=== PATIENT | female | born 1970 | race Caucasian/White ===

== ENCOUNTER 2019-02-11 15:08 | Outpatient (CLI) | payer OTHER ==
[2019-03-11 14:25] LABS: BASOPHILS % 0.3 % (0.0-1.5); MAGNESIUM 1.9 mIU/l (1.6-2.3); NEUTROPHILS # 4.2 # k/uL (1.4-7.7); eGFR (Non-African) > 60
== END 2019-02-11 15:13 | disposition home or self-care (01) ==
LOC: LAB 15:08
PROVIDERS: ATTEND Nurse Practitioner Family
DX: G47.00 Insomnia, unspecified (principal); R53.83 Other fatigue; G25.81 Restless legs syndrome
CPT/HCPCS: 36415; 80053; 83735; 84443; 85025

== ENCOUNTER 2019-04-08 10:11 | Outpatient (CLI) | payer OTHER ==
[2019-04-08] MEDS ORDERED: ONDANSETRON HCL/PF 4 MG/ 2ML VIAL IVP PRN (10:45)
[2019-04-08] MEDS: MULTIVIT INFUSN ADULT K IV ONE ×2 (10:56)
[2019-04-08] MEDS: SODIUM CHLORIDE IV ONE ×2 (10:56)
[2019-04-08 10:59] LABS: ANISOCYTOSIS 1+ (NEGATIVE); BASOPHILS % 0.5 % (0.0-1.5); NEUTROPHILS # 2.6 # k/uL (1.4-7.7); SEGMENTED NEUTROPHILS % 63 % (39-79); eGFR (Non-African) > 60
[2019-04-08] MEDS: 0.9 % SODIUM CHLORIDE 1,000 ML IV PRN (12:56)
== END 2019-04-08 14:20 | disposition home or self-care (01) ==
LOC: INF 10:11
PROVIDERS: ATTEND Nurse Practitioner Family
DX: R11.2 Nausea with vomiting, unspecified (principal); R19.7 Diarrhea, unspecified
CPT/HCPCS: 36415; 80053; 85025; J7030; S1016

== ENCOUNTER 2019-04-10 10:28 | Outpatient (CLI) | payer OTHER ==
[2019-04-10 10:40] LABS: BASOPHILS % 1.1 % (0.0-1.5); NEUTROPHILS # 1.5 # k/uL (1.4-7.7)
[2019-04-10 10:58] LABS: eGFR (Non-African) > 60
== END 2019-04-10 15:30 | disposition home or self-care (01) ==
LOC: INF 10:28
PROVIDERS: ATTEND Nurse Practitioner Family
DX: R11.10 Vomiting, unspecified (principal); R19.7 Diarrhea, unspecified
CPT/HCPCS: 80053; 85025; 87045; 87046; 87177; 87329; 87427; 87493

== ENCOUNTER 2019-04-11 20:50 | Emergency (ER) | payer OTHER ==
[2019-04-11] MEDS ORDERED: DIPHENOXYLATE /ATROPINE 2.5MG-0.025MG TABLET PO ONE (21:15)
[2019-04-11] MEDS ORDERED: ONDANSETRON HCL/PF 4 MG/ 2ML VIAL IVP ONE (21:15)
[2019-04-11] MEDS ORDERED: 0.9 % SODIUM CHLORIDE 1,000 ML IV ONE ×2 (21:16→22:37)
[2019-04-11] MEDS ORDERED: KETOROLAC TROMETHAMINE 30 MG/1ML VIAL IV ONE (21:22)
[2019-04-11 21:50] LABS: BASOPHILS % 0.8 % (0.0-1.5); NEUTROPHILS # 1.8 # k/uL (1.4-7.7)
[2019-04-11 22:03] LABS: eGFR (Non-African) > 60
[2019-04-11] MEDS ORDERED: POTASSIUM CHLORIDE 20 MEQ TABLET.ER PO ONE (22:18)
--- NOTE | 2019-04-11 22:49 | ED Physician Documentation ---
Nausea/Vomiting/Diarrhea - HISTORIAN Historian: patient - HPI Stated Complaint: N/V/D Chief Complaint: Nausea,Vomiting,Diarrhea Additional Information: Patient presents to ED with a 3 day history nausea/vomiting/diarrhea after tra veling to [place]. Patient has been seen in clinic and treated with Cipro/flagyl/promethazine. She reports she is having 15 stools per day, fever (101.8), and nausea. She is unable to keep her meds down. Stool cultures are pending. Onset: days ago (3) Duration: constant Timing: gradual onset Context: out of country travel Severity: severe - Associated Symptoms Vomiting: frequent Diarrhea: watery Abdominal Pain: cramping, periumbilical - ROS CONST: fever CVS/RESP: denies: chest pain, shortness of breath, cough GI/: none EYES/ENT: none NEURO/PSYCH: denies: headache - PAST HX Past History: none Surgeries/Procedures: none Allergies/Adverse Reactions: Allergies Allergy/AdvReac Type Severity Reaction Status Date / Time Sulfa (Sulfonamide Allergy Verified 04/11/19 21:11 Antibiotics) Home Medications: Ambulatory Orders Medication Instructions Recorded Ciprofloxacin HCl [Cipro] 500 mg PO Q12H #14 tablet 04/11/19 Diphenoxylate HCl/Atropine 1 each PO Q6 PRN #20 tablet 04/11/19 [Lomotil] Ondansetron HCl Rapdis [Zofran Odt] 4 mg PO Q8 PRN #20 tab 04/11/19 Potassium Chloride [Klor-Con M20] 20 meq PO BID #8 tab.er.prt 04/11/19 metroNIDAZOLE [Flagyl] 500 mg PO Q6H #28 tablet 04/11/19 - SOCIAL HX Smoking History: non-smoker Alcohol Use: none Drug Use: none - FAMILY HX Family History: none - VITAL SIGNS Vital Signs: Vital Signs Temp Pulse Resp BP Pulse Ox 98.4 F 87 16 92/59 96 04/11/19 20:50 04/11/19 21:50 04/11/19 21:50 04/11/19 21:50 04/11/19 21:50 - REVIEWED ASSESSMENTS Nursing Assessment Reviewed: Yes Vitals Reviewed: Yes ED Results Lab/Radiology - Lab Results Lab Results: Lab Results 04/11/19 04/11/19 21:45 21:45 WBC 4.50 K/ul K/ul (4.00-12.00) RBC 3.60 M/ul L M/ul (3.90-5.20) Hgb 10.5 g/dL L g/dL (11.5-16.0) Hct 30.9 % L % (34.5-46.5) MCV 86.0 fl fl (80.0-100.0) MCH 29.0 pg pg (28.0-34.0) MCHC 33.8 g/dL g/dL (30.0-36.0) RDW 15.9 % H % (11.3-14.3) Plt Count 211 K/mm3 K/mm3 (130-400) Neut % (Auto) 40.5 % % (39.0-79.0) Lymph % (Auto) 27.9 % % (16.0-50.0) [place] % (Auto) 30.1 % H % (0.0-11.0) Eos % (Auto) 0.7 % % (0.0-6.8) Baso % (Auto) 0.8 % % (0.0-1.5) Neut # (Auto) 1.8 # k/uL # k/uL (1.4-7.7) Lymph # (Auto) 1.3 # k/uL # k/uL (0.6-4.0) [place] # (Auto) 1.4 # k/uL H # k/uL (0.0-0.9) Eos # (Auto) 0.0 # k/uL # k/uL (0.0-0.6) Baso # (Auto) 0.0 # k/uL # k/uL (0.0-0.5) Sodium 135 mmol/L L mmol/L (137-145) Potassium 2.7 mmol/L L mmol/L (3.5-5.1) Chloride 96 mmol/L L mmol/L (98-107) Carbon Dioxide 28 mmol/L mmol/L (22-30) Anion Gap 13.7 BUN 3 mg/dL L mg/dL (7-17) Creatinine 0.62 mg/dL mg/dL (0.52-1.04) Estimated Creat Clear 136 Est GFR ( Amer) > 60 (60 - ) Est GFR (Non-Af Amer) > 60 (60 - ) Glucose 122 mg/dL H mg/dL (74-106) Calcium 8.2 mg/dL L mg/dL (8.4-10.2) Total Bilirubin 0.5 mg/dL mg/dL (0.2-1.3) AST 36 U/L U/L (15-46) ALT 15 U/L U/L (13-69) Alkaline Phosphatase 65 U/L U/L (38-126) Total Protein 6.9 g/dL g/dL (6.3-8.2) Albumin 3.7 g/dL g/dL (3.5-5.0) - Orders Orders: ED Orders Category Date Time Status Place IV Lock 1T Care 04/11/19 21:15 Active CBC/PLATELET/DIFF Routine Lab 04/11/19 21:45 Completed CMP Routine Lab 04/11/19 21:45 Completed 0.9 % Sodium Chloride [Normal Saline] 1,000 ml Med 04/11/19 21:16 Discontinued IV Q1H Diphenoxylate HCl/Atropine [Lomotil] Med 04/11/19 21:15 Discontinued 1 each PO NOW ONE Ketorolac Tromethamine [Toradol] Med 04/11/19 21:22 Discontinued 30 mg IV NOW ONE NORMAL SALINE @ 1000 MLS/HR ( 1000ml BOLUS) Med 04/11/19 22:37 Ordered 0.9 % Sodium Chloride [Normal Saline] 1,000 ml IV Q1H Ondansetron HCl/Pf [Zofran] Med 04/11/19 21:15 Discontinued 4 mg IVP NOW ONE Potassium Chloride [Klor-Con M20] Med 04/11/19 22:18 Discontinued 40 meq PO NOW ONE Nausea Physical Exam - EXAM General Appearance: no acute distress, alert EENT: NADIA Neck: supple Respiratory: no resp distress, chest non-tender, breath sounds normal CVS: reg rate & rhythm, heart sounds normal Abdomen: non-tender, other (hyperactive bowel sounds). No: tenderness Back: non-tender. No: CVA tenderness Skin: warm/dry, normal color Extremities: non-tender, normal range of motion, no edema Neuro/Psych: oriented X3, motor nml, mood/affect nml Discharge Clincal Impression: Traveler's diarrhea, Hypokalemia due to excessive gastrointestinal loss of potassium Prescriptions: Diphenoxylate HCl/Atropine [Lomotil] 1 each PO Q6 PRN #20 tablet PRN Reason: Diarrhea Ondansetron HCl Rapdis [Zofran Odt] 4 mg PO Q8 PRN #20 tab PRN Reason: nausea/vomiting Potassium Chloride [Klor-Con M20] 20 meq PO BID #8 tab.er.prt Referrals: Glory Najera, NUCLEAR PHYSICIST [Primary Care Provider] - 2 Days Additional Instructions: 1. Take Potassium twice daily x 4 days 2. Lomotil and Zofran as needed for diarrhea and nausea 3. Follow up with [facility] as soon as possible for stool culture results 4. Finish course of Cipro and Flagyl 5. Tylenol or Ibuprofen as needed for fever 6. Return to ER for new or worsening symptoms Condition: Stable Disposition: 01 HOME, SELF-CARE Decision to Admit: NO Date of Decison to Admit: 04/11/19 Decision Time: 22:57
[2019-04-11 23:52] VITALS: BP 117/75
== END 2019-04-11 23:30 | disposition home or self-care (01) ==
LOC: ED 20:50
DX: R19.7 Diarrhea, unspecified (principal); E87.6 Hypokalemia
CPT/HCPCS: 80053; 85025; 96360; 96361; 96372; 99284; J1885; J2405; A9270; J7030; S1016

== ENCOUNTER 2019-07-29 14:21 | Outpatient (CLI) | payer OTHER | END 2019-07-29 14:26 | LOC: LAB 14:21 | PROVIDERS: ATTEND Obstetrics & Gynecology | DX: N92.0 Excessive and frequent menstruation with regular cycle (principal) | CPT/HCPCS: 36415; 84443 ==